=== PATIENT | male | born 1955 | race Asian ===

== ENCOUNTER → 2025-07-14 | Outpatient (CLI) | payer MEDICARE, MEDICAID, SELFPAY ==
--- NOTE | 2025-07-14 09:00 | XR_ITS ---
Examination: Abdomen sonogram, complete Date and time of exam: July 14, 2025, 0940 hours INDICATIONS: Smoking history years. Technique: Multiple real-time grayscale transabdominal sonographic images of the abdomen have been obtained. Findings: Normal gallbladder Common bile duct 0.7 cm no stones Pancreatic head 1.9 cm Aorta not enlarged. Liver 11.8 cm smooth contour no focal liver lesions Normal hepatopetal portal venous flow Patent IVC Right kidney 10.5 cm renal cortex 1.6 cm Left kidney 10.7 cm renal cortex 2.3 cm Bilateral renal cysts, the largest right kidney 17 mm left kidney 38 mm No hydronephrosis Spleen 7.6 cm IMPRESSION: Normal gallbladder No common bile duct stones
--- NOTE | 2025-07-14 09:30 | XR_ITS ---
Examination: CT lung low dose screening, without contrast. 2-D sagittal reconstructions. 2-D coronal reconstructions. 3-D reconstructions. Date and time of exam: July 14, 2025, 0943 hours INDICATIONS: Nicotine dependence smoking history 40 years CTDI: vol (mGy): 9.04 DLP: (mGycm): 319 Technique: Multiple 1.25 mm axial sections of the thorax have been obtained. 2-D sagittal and coronal reconstructions have been obtained. 3-D reconstructions have been obtained. Low dose protocols were performed. One or more of the following dose reduction techniques were used; automated exposure control, adjustment of the mA and/or KV according to patient size, use of iterative reconstruction technique. Findings: AP dimension ascending thoracic aorta 4.0 cm Pulmonary artery segments are not enlarged Heavy calcification left anterior descending left circumflex coronary arteries Mild enlargement cardiac contour 3 mm pulmonary nodule right upper lobe image 98 No pneumonia or pulmonary edema No visualized liver or splenic lesion No pancreatic or adrenal mass Bilateral renal cysts Mild thoracic spondylosis IMPRESSION: Mild aneurysmal dilatation ascending thoracic aorta 3 mm pulmonary nodule right upper lobe, with the studies baseline recommend 6-month follow-up CT chest without contrast: Normal
== END | disposition home or self-care (01) ==
LOC: CDIM 09:15
PROVIDERS: PCP Physician Assistant; Referring Provider Physician Assistant; Visit Provider Physician Assistant
DX: I71.21 Aneurysm of the ascending aorta, without rupture (principal); R91.1 Solitary pulmonary nodule; F17.210 Nicotine dependence, cigarettes, uncomplicated
CPT/HCPCS: 71271; 76700